=== PATIENT | male | born 1990 | race Caucasian/White ===

== ENCOUNTER 2016-06-23 13:48 | Emergency (ER) | payer BC, OTHER ==
[~2016-06-23] VITALS: Ht 182.9 cm; Wt 80.2 kg
[2016-06-23 14:05] VITALS: BP 147/85; PULSE 66; RESP 16; TEMP 98.3; O2SAT 100
--- NOTE | 2016-06-23 14:16 | PD ---
HPI Chief Complaint: Pain: Acute or Chronic Time Seen by Provider: 14:09 Travel History International Travel<30 days: No Contact w/Intl Traveler<30days: No Traveled to known affect area: No History of Present Illness HPI Healthy 25-year-old male here with complaint of testicular pain/groin pain. For the last 2 days patient has had pain in the left testis that radiates up into the left groin and slightly into the abdomen. He denies any dysuria, hematuria, penile lesions. Notes a history of Chlamydia 2 years ago that was treated appropriately and he's been asymptomatic since. Patient notes a small "lump" above the testis on the left. This is slightly tender with palpation. [facility] Past Medical History Medical History: Denies Significant Hx Past Surgical History Surgical History: No Previous Surgery Social History Alcohol Use: Yes Tobacco Use: Yes Substance Use: Yes (marijuana) Allergies-Medications (Allergen,Severity, Reaction): Coded Allergies: No Known Allergies (Unverified , 06/23/16) Reported Meds & Prescriptions Reported Meds & Active Scripts Active No Active Prescriptions or Reported Medications Review of Systems Except as stated in HPI: all other systems reviewed are Neg Physical Exam Narrative GENERAL: Well-appearing male in no acute distress SKIN: Focused skin assessment warm/dry. HEAD: Normocephalic. EYES: No scleral icterus. No injection or drainage. ENT: Mucous membranes pink and moist. NECK: Supple CARDIOVASCULAR: Regular rate and rhythm. RESPIRATORY: No accessory muscle use. GASTROINTESTINAL: Abdomen soft, non-tender, nondistended. GENITOURINARY: Normal external circumcised male genitalia without lesions. No palpable hernia. Patient has slight fullness/thickening to the epididymis, question epididymal cyst MUSCULOSKELETAL: Normal gait NEUROLOGICAL: Awake and alert. Normal speech. PSYCHIATRIC: Appropriate mood and affect; insight and judgment normal. Data Data Last Documented VS Vital Signs Date Time Temp Pulse Resp B/P Pulse Ox O2 Delivery O2 Flow Rate FiO2 06/23/16 14:05 98.3 66 16 147/85 100 Orders Urinalysis - C+S If Indicated (06/23/16 14:13) Gc And Chlamydia Pcr (06/23/16 14:13) Us Testicles W Doppler (06/23/16 14:13) Labs Laboratory Tests Test 06/23/16 14:15 Urine Collection Type CLEAN CATCH Urine Color STRAW Urine Turbidity CLEAR Urine pH 5.5 Urine Specific [employer] 1.003 Urine Protein NEG mg/dL Urine Glucose (UA) NEG mg/dL Urine Ketones NEG mg/dL Urine Occult Blood NEG Urine Nitrite NEG Urine Bilirubin NEG Urine Leukocyte Esterase NEG Urine Squamous Epithelial 0-5 /hpf Cells Microscopic Urinalysis Comment CULT NOT INDICATED MDM Medical Decision Making Medical Screen Exam Complete: Yes Emergency Medical Condition: Yes Medical Record Reviewed: Yes Differential Diagnosis 25-year-old male here with 2 days of left-sided testicular pain radiating into the groin/abdomen. Differential includes epididymal cysts, hydrocele, epididymitis, and less likely testicular torsion or mass. Narrative Course Urine GC and chlamydia was sent. Urinalysis unremarkable. Testicular ultrasound showed left-sided epididymal cyst, normal blood flow. Patient reassured and discharged home. Diagnosis Primary Impression: Epididymal cyst Referrals: Primary Care Physician as needed Additional Instructions: Tylenol, ibuprofen, Aleve as needed for pain. Med/Other Pt SpecificInfo: No Change to Meds Scripts No Active Prescriptions or Reported Meds Disposition: 01 DISCHARGE HOME Condition: Stable Penny Aiken MD Jun 23, 2016 14:16 Condition: Stable Penny Aiken MD Jun 23, 2016 14:16
[2016-06-23 14:26] LABS: BLOOD, URINE NEG (NEG); GLUCOSE,URINE NEG (NEG); KETONE, URINE NEG (NEG); NITRITE,URINE NEG (NEG); PH, URINE 5.5 (5.0-8.5)
[2016-06-23 14:27] LABS: METHOD OF COLLECTION CLEAN CATCH; URINE COLOR STRAW (YELLW/STRAW)
[2016-06-23 14:30] LABS: COMMENT (UR) CULT NOT INDICATED; CULTURE IF INDICATED CULT NOT INDICATED; SQUAMOUS EPITHELIAL CELL URINE 0-5 /hpf (0-5)
--- NOTE | 2016-06-23 16:36 | RADHPO ---
EXAM DATE/TIME: 06/23/2016 15:30 [facility] COMPARISON: No previous studies available for comparison. INDICATIONS : Left testicle pain. MEDICAL HISTORY : Marijuana use. SURGICAL HISTORY : None. ENCOUNTER: Initial ACUITY: 2 days PAIN SCORE: 5/10 LOCATION: Bilateral testicle. MEASUREMENTS: RIGHT TESTICLE: 4.9 x 2.2 x 3.7cm LEFT TESTICLE: 4.4 x 2.5 x 3.5 cm FINDINGS: RIGHT TESTICLE: Homogeneous echotexture without intra or extratesticular mass. Blood flow is symmetric and within no rmal limits. No hydrocele or varicocele. Epididymis is within normal limits. LEFT TESTICLE: Homogeneous echotexture without intra or extratesticular mass. Blood flow is symmetric and within no rmal limits. No hydrocele or varicocele. There is an 8 x 6 by 8mm cyst with smooth margins and good through-transmission in the epididymal head.. SCROTUM: Within normal limits. CONCLUSION: 8mm cyst in the head of the left epididymis. Otherwise negative exam. Ted Baca MD on June 23, 2016 at 16:33 Board Certified Radiologist. This report was verified electronically.
[2016-06-23 22:01] LABS: CHLAMYDIA PCR NOT DETECTED (NOT DETECT); NEISSERIA PCR NOT DETECTED (NOT DETECT)
== END 2016-06-23 16:01 | disposition home or self-care (01) ==
LOC: PHED 13:48
DX: N50.3 Cyst of epididymis (principal); Z72.0 Tobacco use; F12.10 Cannabis abuse, uncomplicated
CPT/HCPCS: 76870; 81001; 87491; 87591; 93975

== ENCOUNTER 2016-11-09 19:50 | Emergency (ER) | payer BC ==
[2016-11-09 20:25] VITALS: BP 132/88; PULSE 80; RESP 16; TEMP 98.5; O2SAT 100
[2016-11-09] MEDS ORDERED: LIDOCAINE HCL 1% 50 ML VIAL INFIL ONE (21:15)
[2016-11-09] MEDS ORDERED: BACT800T5 PO (21:34)
--- NOTE | 2016-11-09 21:38 | PD ---
HPI Chief Complaint: Laceration/Skin Injury Time Seen by Provider: 21:06 Travel History International Travel<30 days: No Contact w/Intl Traveler<30days: No Traveled to known affect area: No History of Present Illness HPI 25-year-old male that presents to the ED for evaluation of laceration to his right thigh. Per patient he was cleaning a knife and the knife fell from his hand and into his leg. Patient states that he immediately put some gauze and try to stop the bleeding. Per patient he comes here because he is concerned that he may need suturing. He states that his pain is minimal 2 out of 10. He is able to ambulate. Denies any numbness, tilling, weakness. No allergies to medication. No chest or shortness of breath. Other medical issues. Patient states that he is up-to-date with his tetanus. PFSH Past Medical History Medical History: Denies Significant Hx Diminished Hearing: No Tetanus Vaccination: < 5 Years Influenza Vaccination: No ?: Not Social History Alcohol Use: Yes Tobacco Use: Yes Substance Use: Yes (marijuana) Allergies-Medications (Allergen,Severity, Reaction): Coded Allergies: No Known Allergies (Unverified , 11/09/16) Reported Meds & Prescriptions Reported Meds & Active Scripts Active Bactrim DS (Sulfamethoxazole-Trimethoprim) 800-160 Mg Tab 1 Tab PO BID 10 Days Review of Systems Except as stated in HPI: all other systems reviewed are Neg Physical Exam Narrative GENERAL: SKIN: Warm and dry. HEAD: Atraumatic. Normocephalic. EYES: Pupils equal and round. No scleral icterus. No injection or drainage. ENT: No nasal bleeding or discharge. Mucous membranes pink and moist. Tongue is midline. No uvula deviation. NECK: Trachea midline. No JVD. CARDIOVASCULAR: Regular rate and rhythm. RESPIRATORY: No accessory muscle use. Clear to auscultation. Breath sounds equal bilaterally. GASTROINTESTINAL: Abdomen soft, non-tender, nondistended. Hepatic and splenic margins not palpable. MUSCULOSKELETAL: Extremities without clubbing, cyanosis, or edema. No obvious deformities. Full range of motion of the upper and lower extremities bilaterally. 2+ pulses bilaterally. Patient has a superficial laceration that is about 1 cm on the right tigh area. Some bleeding noted. Full range of motion of the entire right lower extremity. Neurovascular intact. Slightly tender to touch. No foreign body noted. NEUROLOGICAL: Awake and alert. No obvious cranial nerve deficits. Motor grossly within normal limits. Five out of 5 muscle strength in the arms and legs. Normal speech. PSYCHIATRIC: Appropriate mood and affect; insight and judgment normal. Data Data Last Documented VS Vital Signs Date Time Temp Pulse Resp B/P (MAP) Pulse Ox O2 Delivery O2 Flow Rate FiO2 11/09/16 20:25 98.5 80 16 132/88 (103) 100 Orders Orders Wound Care (11/09/16 21:08) Lidocaine 1% Inj (50 Ml) (Xylocaine 1% I (11/09/16 21:15) MDM Medical Decision Making Medical Screen Exam Complete: Yes Emergency Medical Condition: Yes Medical Record Reviewed: Yes Differential Diagnosis Laceration versus abrasion versus skin tear Narrative Course 25-year-old male that presents to the ED for evaluation of laceration to the right leg. Patient was properly examined and was found to have signs and symptoms consistent with laceration. After explained procedure to the patient he agreed to it laceration was repaired as stated in procedure note. Patient was told to get sutures removed in 2 weeks. Given prescription for Bactrim for infection prophylaxis. Told to take Motrin or Tylenol for pain. Wound care as needed. Follow with PCP. See ED worsening symptoms. Procedures Procedure Narrative LACERATION LOCATION: Right leg LENGTH: 1 cm NUMBER OF STITCHES/LAURA: 3 sutures REPAIR: The area of the laceration was prepped with Betadine and sterilely draped. The laceration was infiltrated with 1% Xylocaine. The wound was copiously irrigated and explored without evidence of foreign body, tendon injury or neurovascular injury. The wound was closed using 3-0 Prolene. This was a 1 layer repair. A sterile dressing was applied. The patient was advised to keep the dressing clean and dry. Patient tolerated the procedure well. Diagnosis Primary Impression: Laceration of leg Qualified Codes: S81.811A - Laceration without foreign body, right lower leg, initial encounter Patient Instructions: General Instructions Additional Instructions: Wound care daily with soap and water. You can apply bandaid if needed. Neosporyn or OTC antibiotic ointment to area as needed twice a day for at least 2 weeks to help with scarring and prevent infection. Meoderma OTC for scarring if needed. Avoid sun exposure for 2 months as the sun could make scar darker and more noticeable. Get sutures removed in 14 days. See ED if worst. Med/Other Pt SpecificInfo: Prescription(s) given Scripts Sulfamethoxazole-Trimethoprim (Bactrim DS) 800-160 Mg Tab 1 TAB PO BID for Infection for 10 Days, #6 TAB 0 Refills Prov: Madhav Spencer MD 11/09/16 Disposition: 01 DISCHARGE HOME Condition: Stable Chan Linn Nov 09, 2016 21:38
== END 2016-11-09 21:59 | disposition home or self-care (01) ==
LOC: PHEFT 19:50
DX: S71.111A Laceration without foreign body, right thigh, initial encounter (principal); W26.0XXA Contact with knife, initial encounter; Z72.0 Tobacco use; F12.90 Cannabis use, unspecified, uncomplicated
CPT/HCPCS: 12001